=== PATIENT | male | born 1970 | race Caucasian/White ===

== ENCOUNTER 2019-06-12 22:50 | Emergency (ER) | payer OTHER, SELFPAY ==
--- NOTE | ~2019-06-12 | XR_ITS ---
XR tibia fibula LT 2V, XR foot LT min 3V 06/12/2019 23:44 (accession [id number]), 06/12/2019 23:43 (accession [id number]) Indication: Left leg and foot pain after fall Procedure: 2 views left tibia/fibula and 4 views left foot Comparison: No prior studies for comparison. Findings: No acute fracture, subluxation or dislocation. Lisfranc joint intact. No focal soft tissue abnormality. No radiopaque foreign bodies. Impression: 1: No acute fracture. Reviewed, dictated and finalized at location A. ETIC CHEMIST Impression: 1: No acute fracture. Impression: 1: No acute fracture.
[2019-06-12 22:52] VITALS: BP 146/87; PULSE 116; RESP 20; TEMP 37.1; O2SAT 98
[2019-06-12 23:27] VITALS: BP 140/100; PULSE 111; RESP 18; O2SAT 98
--- NOTE | 2019-06-12 23:30 | ED.EXTPRO ---
HPI - Extremity Problem General Chief complaint: Extremity Injury, Lower Stated complaint: L ankle pain Time Seen by Provider: 06/12/19 23:07 Source: patient Mode of arrival: ambulatory Limitations: no limitations History of Present Illness HPI Narrative: Patient is a 48-year-old male presents emergency department with complaints of left lower extremity pain to the foot and ankle. [facility] and thinks he twisted his left ankle. Patient has noticed pain to the ankle and foot. Patient has also noticed pale cool appearance to his foot. Patient reports onset of symptoms 5 days ago. Patient has been taking ibuprofen for pain. Patient also reports subjective fever, sore throat, and occasional nausea and vomiting. MD Complaint: extremity pain and cold extremity Onset (ago): day(s) (5) Pain Consistency: constant Location: left and lower extremity Quality: constant Relieving factors: nothing Exacerbating factors: palpation Associated symptoms: fever Related Data Allergies Allergy/AdvReac Type Severity Reaction Status Date / Time amoxicillin Allergy Unknown Unknown Verified 02/02/18 16:31 [facility] Past Medical History Medical History (Updated 06/13/19 @ 00:29 by Dipika Alejandra MD) Coronary artery disease Discitis of lumbar region Hepatitis C Hypertension Surgical History Surgical History (Updated 06/12/19 @ 23:34 by Dipika Alejandra MD) History of cardiac catheterization History of coronary artery stent placement Social History Social History (Updated 06/12/19 @ 23:44 by Dipika Alejandra MD) Smoking packs per day: 1 Smoking cigarettes per day: 20.0 Smoking status: Current every day smoker Substance use: former Substance use type: IV drugs Gender identity (if verbalized by the patient): Male Exam Const: General: cooperative, alert and uncomfortable Nutritional Appearance: well nourished Orientation/consciousness: patient oriented x3 Limitations: no limitations HENMT: Mouth: Yes lip normal and Yes moist mucous membranes Resp: Effort & Inspection: normal respiratory effort Auscultation: clear to auscultation bilaterally Cardio: Rate: tachycardic Rhythm: regular rhythm Peripheral pulses: popliteal pulses present bilateral dopplerable, posterior tibial pulses present on the right dopplerable; not on the left (absent, not dopplerable) and dorsalis pedis present on the right dopplerable; not on te left (absent, not dopplerable) GI: GI Palp: Yes Soft to palpation and No Tenderness to palpation present (GI) Auscultation: normal bowel sounds Skin: General skin exam: normal color, mottling (LLE from mid tib-fib down through foot) and pallor (LLE from mid tib-fib down through foot) Neuro: General: patient oriented x3 Cognition (Neuro): normal cognition Speech: normal speech Extrem: General: full ROM Right lower extremity: lower leg Details: tenderness (diffuse from mid tib-fib down through foot) Psych: Mental Status: mental status grossly normal Affect: normal affect Attitude: cooperative Course Course Emergency Course: Patient with complaints of pain to his left lower extremity for the past 5 days. Patient thought this was secondary to a traumatic injury. Patient however has lower leg ischemia on examination. Uncertain if his lower leg has been ischemic for the full 5 days. Patient does have limited movement and sensation compared to the right side. Patient has no dopplerable pulses distal to the popliteal which is easily dopplerable. Patient has approximate line of demarcation of ischemic findings in the mid tib-fib region on the left lower leg. Patient given IV pain medications, heparin bolus, and started on heparin drip. Arrangements made to transfer patient [facility] for vascular surgery evaluation. Consultations Consultation #1: Case discussed with Dr. Bruno, vascular surgery at [facility] who accepted patient
[2019-06-12] MEDS: SODIUM CHLORIDE 0.9% IV 1,000 ML 999 ML IV CONT (23:42)
[2019-06-12 23:56] LABS: Basophils Percent Auto 0.3 % (0.2-1.2); Eosinophils Percent Auto 0.3 % (0-4.4); Hematocrit 42.9 % (42.0-52.0); Hemoglobin 14.6 g/dL (14.0-18.0); Immature Granulocyte Absolute 0.07 K/mm3 (0.00-0.031); Immature Granulocyte Percent A 0.5 % (0-0.5); Lymphocytes Absolute Auto 1.87 K/mm3 (0.9-3.2); Lymphocytes Percent Auto 13.9 % (18.3-44.2); Mean Corpuscular Hemoglobin 29.7 pg (26-34); Mean Corpuscular Volume 87.4 fl (80-100); Mean Platelet Volume 9.4 fl (7.4-10.4); Monocytes Absolute Auto 0.7 K/mm3 (0.1-0.6); Monocytes Percent Auto 5.1 % (2.6-8.5); Neutrophils Absolute Auto 10.7 K/mm3 (1.3-6.7); Neutrophils Percent Auto 79.9 % (45.5-73.1); Platelet Count Result 345 k/mm3 (150-375); Red Blood Count 4.91 M/mm3 (4.6-6.20); Red Cell Distribution Width 13.1 % (11.5-14.5); White Blood Count 13.5 K/mm3 (4.5-10.0)
[2019-06-13] MEDS: HEPARIN SODIUM 5,000 UNITS/ML VIAL 4500 UNITS IV PUSH
[2019-06-13 00:07] LABS: INR 0.9; Partial Thromboplastin Time 22.6 SECONDS (22.3-36.8); Prothrombin Time 12.2 Seconds (11.1-14.7)
[2019-06-13 00:08] LABS: Lactic Acid Reflex 1.4 mmol/L (0.7-2.1)
[2019-06-13 00:14] LABS: Alanine Aminotransferase 45 U/L (4-50); Albumin Level 3.8 g/dL (3.5-5.1); Alkaline Phosphatase 224 U/L (38-126); Aspartate Amino Transferase 59 U/L (17-59); Bilirubin,Total 0.6 mg/dL (0.2-1.3); Blood Urea Nitrogen 12 mg/dL (9-20); Calcium 9.1 mg/dL (8.4-10.2); Carbon Dioxide 33 mmol/L (22-30); Chloride 85 mmol/L (98-107); Creatine Kinase 1047 U/L (55-170); Estimated CRCL calculation 80 ml/min; Estimated Glomerular Filt Rate > 60; Glucose 587 mg/dL (75-110); Potassium 4.3 mmol/L (3.4-5.0); Sodium 130 mmol/L (137-145)
[2019-06-13] MEDS: HEPARIN SOD/D5W 100 UNITS/ML 25,000 UNITS/250 ML BAG 11 UNITS IV CONT (00:34)
[2019-06-13 00:47] VITALS: BP 142/96; PULSE 90; RESP 18; O2SAT 98
--- NOTE | 2019-06-18 20:29 | PC.NURSE ---
LATE ENTRY This note is being entered to document information to the patient's record. The following information was omitted on [06/12/19], by [Christal Austin]. Heparin drip continued infusing while pt was transferred to another facility.
== END 2019-06-13 00:48 | disposition short-term general hospital (02) ==
PROVIDERS: Emergency Provider Emergency Medicine
DX: I70.202 Unspecified atherosclerosis of native arteries of extremities, left leg (principal); R73.9 Hyperglycemia, unspecified; I25.10 Atherosclerotic heart disease of native coronary artery without angina pectoris; I10 Essential (primary) hypertension; Z95.5 Presence of coronary angioplasty implant and graft; F17.210 Nicotine dependence, cigarettes, uncomplicated; Z86.19 Personal history of other infectious and parasitic diseases
CPT/HCPCS: 36415; 73590; 73630; 80053; 82550; 83605; 85025; 85610; 85730; 87081; 87804; 87880; 96361; 96374; 96375; 99285; J0131; J1644; J3010; J7030

== ENCOUNTER 2021-03-13 20:39 | Inpatient (IN) | payer OTHER, SELFPAY ==
--- NOTE | ~2021-03-13 | XR_ITS ---
XR chest 1V portable 03/13/2021 21:17 Indication: STEMI Procedure: AP portable chest Comparison: No prior studies for comparison. Findings: Heart size normal. There are diffuse bilateral interstitial infiltrates with peribronchial thickening. No pleural effusion or pneumothorax. Impression: 1: Diffuse bilateral interstitial infiltrates, suspicious for interstitial edema versus pneumonia. Reviewed, dictated and finalized at location A. STANT PROFESSOR OF ENGLISH Impression: 1: Diffuse bilateral interstitial infiltrates, suspicious for interstitial bee a versus pneumonia.
[2021-03-13 20:40] VITALS: BP 137/103; PULSE 60; RESP 14; O2SAT 100
--- NOTE | 2021-03-13 20:52 | ECG_ITS ---
Measurements Intervals [place] Rate: 65 P: 78 NC: 178 QRS: 53 QRSD: 98 T: 1 QT: 405 QTc: 421 Interpretive Statements SINUS RHYTHM POSSIBLE LEFT ATRIAL ENLARGEMENT BORDERLINE T WAVE ABNORMALITY- INFERIOR LEADS BASELINE ARTIFACT- I, III, AVR, AVL, AVF, V1-V2, V5 BORDERLINE ECG Electronically Signed On 03-14-2021 6:42:03 [employer] INSERTION LOOM FIXER by Ras Spear D.O.
[2021-03-13] MEDS: NITROGLYCERIN SL 0.4 MG TABLET SUBLINGUAL (21:08)
[2021-03-13] MEDS: MORPHINE SULFATE (*CRX) 4 MG/ML INJ IV PUSH (21:13)
--- NOTE | 2021-03-13 21:15 | ED.CHESTPAIN ---
HPI - Chest Pain General Chief Complaint: Chest Pain Stated Complaint: STEMI Time Seen by Provider: 03/13/21 20:48 Source: patient and EMS Mode of arrival: EMS Limitations: clinical condition History of Present Illness HPI narrative: 50-year-old male Brought in by EMS for chest pain Patient reports 2 prior MIs roughly 3 years ago and 7 years ago both taking care of of at [place] [facility] [place] He still smokes a pack a day, does not drink no other drug use He does say that he is taking his blood pressure medicine and his statin and his aspirin He also is an insulin-dependent diabetic and reports that he took his morning insulin today He summoned EMS because of onset of severe chest pain about 2 hours prior to arrival Initial EMS EKG was benign but his pain increased and a second EKG demonstrated inferior ST segment elevations consistent with STEMI and a STEMI was called They also noted high on Accu-Chek He received aspirin, he also received nitroglycerin with little benefit He is not vomiting, he is not lightheaded he is not diaphoretic Related Data Allergies Allergy/AdvReac Type Severity Reaction Status Date / Time amoxicillin Allergy Unknown Unknown Verified 02/02/18 16:31 Review of Systems Review of Systems: ROS unobtainable: Yes unobtainable due to medical condition Cardiovascular: Cardiovascular: Reports chest pain Respiratory: Respiratory: Denies dyspnea Gastrointestinal: Gastrointestinal: Denies vomiting PMFSH Past Medical History Medical History Coronary artery disease Discitis of lumbar region Hepatitis C Hypertension Surgical History Surgical History History of cardiac catheterization History of coronary artery stent placement Social History Social History Smoking packs per day: 1 Smoking cigarettes per day: 20.0 Smoking status: Current every day smoker Substance use: former Substance use type: IV drugs Gender identity (if verbalized by the patient): Male Exam Const: General: cooperative, alert and in distress severe Orientation/consciousness: patient oriented x3 (alert) HENMT: Head: normal to inspection, normocephalic and atraumatic Ears: external ears normal General nose exam: no epistaxis Eyes: Conjunctivae: conjunctivae normal EOM: EOMs intact bilaterally Neck: Neck: normal visual inspection, supple and no JVD Resp: Effort & Inspection: normal respiratory effort and not labored Auscultation: clear to auscultation bilaterally, no rales, no rhonchi, no wheezes and other (BS =) Cardio: Rate: regular rate Rhythm: regular rhythm Heart sounds: no murmurs GI: GI Palp: Yes Soft to palpation, No Tenderness to palpation present (GI) and No Guarding due to palpation present (GI) Skin: General skin exam: normal color and no rashes or lesions noted Neuro: General: patient oriented x3 (alert) and moves all extremities Speech: normal speech Extrem: General: normal to inspection and no pedal edema Psych: Affect: Anxious affect present Course Course Emergency Course: Spoke directly to cardiology with regard to the STEMI page Interestingly his first EKG here showed significant inferior ST elevations and bradycardia but on a subsequent tracing a few minutes later both of those things had resolved all of his chest pain continued Vital stable when he was transferred to the [facility] We did not receive any of his labs back before he left the department Vital Signs Vital signs: Vital Signs Pulse Rate 60 03/13/21 20:40 Respiratory Rate 14 03/13/21 20:40 Blood Pressure 137/103 H 03/13/21 20:40 Pulse Oximetry 100 03/13/21 20:40 Pulse Rate 60 03/13/21 20:40 Respiratory Rate 14 03/13/21 20:40 Blood Pressure 137/103 H 03/13/21 20:40 Pulse Oximetry 100 03/13/21 20:40 MDM - Chest P
[2021-03-13 21:59] LABS: Fractional Inspired Oxygen 21 %; HCO3 VBG 29.4 mEq/l (24.0-30.0); pH VBG 7.276 (7.300-7.400)
[2021-03-13 22:01] LABS: Glucose Point of Care 421 mg/dl (65-105)
[2021-03-13 22:01] LABS: Basophils Absolute Auto 0.1 K/mm3 (0.0-0.1); Basophils Percent Auto 0.4 % (0.2-1.2); Eosinophils Absolute Auto 0.1 K/mm3 (0-0.3); Eosinophils Percent Auto 0.8 % (0-4.4); Hematocrit 42.7 % (42.0-52.0); Hemoglobin 15.2 g/dL (14.0-18.0); Immature Granulocyte Absolute 0.04 K/mm3 (0.00-0.031); Immature Granulocyte Percent A 0.3 % (0-0.5); Lymphocytes Absolute Auto 3.18 K/mm3 (0.9-3.2); Lymphocytes Percent Auto 26.5 % (18.3-44.2); Mean Corpuscular HGB Conc 35.6 g/dl (32-36); Mean Platelet Volume 8.8 fl (7.4-10.4); Monocytes Absolute Auto 0.7 K/mm3 (0.1-0.6); Monocytes Percent Auto 6.1 % (2.6-8.5); Neutrophils Absolute Auto 7.9 K/mm3 (1.3-6.7); Neutrophils Percent Auto 65.9 % (45.5-73.1); PCO2 VBG 64.7 mmHg (42.0-48.0); PO2 VBG 24.2 mmHg (35.0-45.0); Platelet Count Result 255 k/mm3 (150-375); Red Blood Count 4.91 M/mm3 (4.6-6.20); Red Cell Distribution Width 12.1 % (11.5-14.5)
[2021-03-13 22:11] LABS: Anion Gap 8 mmol/L (8-16); Blood Urea Nitrogen 15 mg/dL (9-20); Calcium 9.4 mg/dL (8.4-10.2); Carbon Dioxide 29 mmol/L (22-30); Chloride 94 mmol/L (98-107); Estimated CRCL calculation 78 ml/min; Estimated Glomerular Filt Rate > 60; Glucose 435 mg/dL (65-110); Potassium 4.7 mmol/L (3.4-5.0); Sodium 131 mmol/L (137-145)
--- NOTE | 2021-03-13 22:11 | PM.IMHP ---
H&P: HPI History of Present Illness Date/Time: 03/13/21 22:11 Chief Complaint: chest pain Narrative: this is a 50-year-old patient who is known to have coronary artery disease with previous percutaneous revascularization by another sr. manager to does not practice at this hospital. He was brought to this hospital this evening with chest pain and ECG on route in the field demonstrates obvious acute inferior current of injury. In this setting STEMI was activated. Patient is being seen in the cardiac catheterization lab by his being prepared for emergency angiography. He is in significant distress because of chest pain. No other history is obtained at the time of this emergency Review of Systems Review of Systems: ROS unobtainable: Yes unobtainable due to medical condition PMFSH Past Medical History Medical History Coronary artery disease Discitis of lumbar region Hepatitis C Hypertension Surgical History Surgical History History of cardiac catheterization History of coronary artery stent placement Social History Social History Smoking packs per day: 1 Smoking cigarettes per day: 20.0 Smoking status: Current every day smoker Substance use: former Substance use type: IV drugs Gender identity (if verbalized by the patient): Male Meds Home Medications and Allergies Allergies Allergy/AdvReac Type Severity Reaction Status Date / Time amoxicillin Allergy Unknown Unknown Verified 02/02/18 16:31 Vital Signs Vital Signs - 24 hr 03/13/21 20:40 Pulse Rate 60 Respiratory Rate 14 Blood Pressure 137/103 H Pulse Oximetry 100 Exam Const: General: in distress and uncomfortable Other: white male appearing older than his stated age screaming because of chest pain HENMT: Mouth: Yes moist mucous membranes Eyes: Sclera: sclerae normal Pupils: Equal, round and reactive pupils present Neck: Neck: supple and no JVD Other: carotid pulses are intact bilaterally Resp: Auscultation: diminished lung sounds Other: breath sounds are diminished bilaterally no rales or wheezing Cardio: Rate: regular rate Rhythm: regular rhythm Other: PMI nondisplaced, S4 is evident no murmur GI: GI Palp: Yes Soft to palpation Auscultation: normal bowel sounds Skin: General skin exam: normal color Neuro: Cognition (Neuro): normal cognition Extrem: Other: pulses below the femoral triangle was are diminished previous vascular surgery scars are noted H&P: Results Labs Labs: Short CBC 03/13/21 Range/Units 21:50 WBC 12.0 H (4.5-10.0) K/mm3 Hgb 15.2 (14.0-18.0) g/dL Hct 42.7 (42.0-52.0) % Plt Count 255 (150-375) k/mm3 Assessment and Plan Additional Plan 50-year-old man with coronary artery disease previous percutaneous revascularization no records of this her details are available to us at this hospital. He presents with chest pain and acute inferior wall ST-elevation MS. Preparations are now being made for emergency angiography and revascularization. Patient states he has hypertension diabetes dyslipidemia and ongoing cigarette smoking Jeffy Oneill MD [facility]
[2021-03-13 22:12] LABS: Alanine Aminotransferase 23 U/L (4-50); Albumin Level 4.5 g/dL (3.5-5.1); Alkaline Phosphatase 156 U/L (38-126); Anion Gap 10 mmol/L (8-16); Aspartate Amino Transferase 22 U/L (17-59); Bilirubin,Total 0.5 mg/dL (0.2-1.3); Blood Urea Nitrogen 14 mg/dL (9-20); Calcium 9.7 mg/dL (8.4-10.2); Carbon Dioxide 28 mmol/L (22-30); Chloride 94 mmol/L (98-107); Estimated CRCL calculation 70 ml/min; Estimated Glomerular Filt Rate > 60; Glucose 436 mg/dL (65-110); Potassium 4.6 mmol/L (3.4-5.0); Sodium 132 mmol/L (137-145)
[2021-03-13 22:14] LABS: INR 0.9; Prothrombin Time 12.1 Seconds (11.1-14.7)
--- NOTE | 2021-03-13 22:14 | WPDCARDPROC ---
Cardiac Cath Procedure Note Date of procedure:: 03/13/21 Performing physician:: Jeffy Oneill MD Indication:: acute ST-elevation inferior wall MD Brief clinical history:: this is a 50-year-old patient brought into the emergency room by ambulance with chest pain ECG in the field demonstrates acute ST segment elevation MD of the inferior wall. He has a history of previous PCI no records of this are available here at [facility]. Patient reports a history of hypertension dyslipidemia diabetes and he has chosen to continue to smoke cigarettes. Procedure Procedure performed:: Emergency coronary angiography emergency PCI(JEROME) to the right coronary artery left ventriculography Sedation/Medication given:: no sedation Access site:: right femoral artery Estimated blood loss:: 30 cc Procedure note:: patient was brought to the cardiac catheterization lab in the emergency setting described above. The right femoral triangle was prepared and draped in the usual fashion. Anesthesia was given with 1% lidocaine infiltrated locally. Using the modified Seldinger technique the femoral artery was punctured and a 6 [place] Zealander vascular sheath was placed. I used a 5 [place] FL4 catheter to engage inject the left coronary artery in multiple projections I then used a 6 [place] JR4 guiding catheter to engage inject the right coronary artery. The cineangiograms were then reviewed and PCI of the right coronary artery was recommended and carried out as detailed below. prior to RCA PCI the patient received 180 mg of Brilinta orally in the supervisor labor gang and he was anticoagulated with bolus and infusion of Angiomax. He had received aspirin loading dose in the emergency department. Following PCI the sheath was sutured into position I used a 5 [place] Zealander angled pigtail catheter to measure left-sided hemodynamics and to inject LV g in the PUENTE projection. After this case was terminated. Patient was taken to the ICU for post MD PCI recovery. There were no procedural complications and he left the supervisor labor gang with no evidence of a groin hematoma. Findings:: Hemodynamics: Central aortic pressure is 1 95 over 104 left ventricle 195/0 end-diastolic pressure 26. No gradient on pullback across the aortic valve. Left ventricle: The mid to basal segments of the inferior wall are akinetic the remainder of the LV contracts well the global ejection fraction is 50-55% by visual estimation the left main coronary artery is nicely patent left anterior descending is a moderate caliber artery extending down to the apex the LAD has visible stent material in the proximal 3rd which remains nicely patent with no significant loss of lumen. There was MARIBEL 3 flow in the LAD. The circumflex gives rise to 1 significant marginal branch and another smaller marginal branch the proximal segment of the circumflex also has previously visible stent material which also remains nicely patent with no loss of lumen and MARIBEL 3 flow in the circumflex the right coronary artery is moderate to large in caliber and dominant to the posterior circulation the right coronary artery has visible stent material in the 2nd portion. Just proximal to that the vessel is 100% occluded in the 1st portion. Intervention: The right coronary artery was traversed using a 0.014 BMW coronary guidewire. The target lesion where the at the site of the original occlusion was then pre-dilated using 3 x 20 mm emerge PTCA balloon. There was then MARIBEL 3 flow restored very quickly into the RCA. The target lesion was then stented using a 3.5 x 22 mm Orsiro drug-eluting stent deployed at 8 atmospheres with the excellent anatomical result no residual stenosis disruption or embolization. Angiographically there is 70-80% stenosis in the 3rd portion of the RCA. I elected to treat this segment as well using the same 3.5 x 22 mm Orsiro drug-eluting stent also with an excellent anatomical result. At the end of the intervention the right
[2021-03-13 22:16] LABS: Beta-Hydroxybutyrate/Acetoacetate 0.09 mmol/L (0.02-0.27)
[2021-03-13 22:23] LABS: INR 0.9; Partial Thromboplastin Time 23.9 SECONDS (22.3-36.8); Prothrombin Time 12.2 Seconds (11.1-14.7)
[2021-03-13 22:24] LABS: Troponin I < 0.012 ng/mL (0.000-0.034)
[2021-03-13 22:26] LABS: Troponin I < 0.012 ng/mL (0.000-0.034)
[2021-03-13 22:30] VITALS: BP 170/120; PULSE 83; RESP 20; TEMP 36.9; O2SAT 100
[2021-03-13 22:32] LABS: D Dimer 0.38 ug/mL (<0.48)
[2021-03-13 22:44] LABS: Cholesterol 198 mg/dL (0-200); HDL Direct 39 mg/dL; Triglycerides 151 mg/dL (<150)
[2021-03-13 22:55] LABS: LDL Cholesterol Direct 134 mg/dL
--- NOTE | 2021-03-13 22:55 | PC.NURSE ---
Addendum entered by Eva Zimmerman RN 03/13/21 22:57: Admitted at 2227 Original Note: This patient, Cliff Peralta, was admitted to Intensive Care Unit-7 at 1027. Patient/family oriented to hospital policies and general routines including ID bracelet, bed and alarms, visiting hours, pain management, procedures, bathroom and other care routines, personal items, smoking policy, room service/diet, and visiting hours. Information on how to activate the Rapid Response Team has been discussed. Patient/Family are encouraged to report perceived risks to care and to ask questions if they do not understand what they are told or what they should do.
[2021-03-13 23:00] VITALS: BP 179/114; PULSE 87; RESP 16; O2SAT 98
[2021-03-13 23:06] VITALS: BMI 26.4
--- NOTE | 2021-03-13 23:19 | PC.NURSE ---
Cardiopulmonary Rehab Services flyer was given to patient.
--- NOTE | 2021-03-13 23:26 | PC.NURSE ---
Levemir is patient's home insulin our pharmacy autosubs to Lantus.
[2021-03-13] MEDS: hydrALAZINE HCL 20 MG/ML VIAL 10 MG IV PUSH (23:33)
[2021-03-13] MEDS: INSULIN GLARGINE (*BKC) 100 UNITS/ML 10 UNITS SUB-Q (23:34)
[2021-03-13] MEDS: INSULIN HUMAN REGULAR (*BKC) 100 UNITS/ML IV PUSH (23:34)
[2021-03-13] MEDS: SODIUM CHLORIDE 0.9% IV 1,000 ML 999 ML IV CONT (23:36)
[2021-03-13 23:43] LABS: Glucose Point of Care 266 mg/dl (65-105)
[2021-03-14] VITALS (19 sets, daily range): BP systolic 110–177; BP diastolic 70–103; PULSE 64–91; RESP 11–24; TEMP 36.4–36.8; O2SAT 96–100
[2021-03-14] MEDS: hydrALAZINE HCL 20 MG/ML VIAL 10 MG IV PUSH (03:43)
--- NOTE | 2021-03-14 05:11 | ECG_ITS ---
Measurements Intervals [place] Rate: 62 P: -3 DC: 127 QRS: 4 QRSD: 98 T: -32 QT: 446 QTc: 454 Interpretive Statements SINUS RHYTHM BORDERLINE T WAVE ABNORMALITY- INFERIOR LEADS BASELINE ARTIFACT- AVR, AVL, AVF BORDERLINE ECG Electronically Signed On 03-14-2021 12:06:53 [employer]OR [employer]FFECT[employer] by Ras Spear D.O.
[2021-03-14 06:43] LABS: Anion Gap 7 mmol/L (8-16); Blood Urea Nitrogen 13 mg/dL (9-20); Calcium 9.1 mg/dL (8.4-10.2); Carbon Dioxide 24 mmol/L (22-30); Chloride 103 mmol/L (98-107); Estimated CRCL calculation 107 ml/min; Estimated Glomerular Filt Rate > 60; Glucose 281 mg/dL (65-110); Magnesium 1.8 mg/dL (1.6-2.3); Potassium 3.7 mmol/L (3.4-5.0); Sodium 134 mmol/L (137-145)
[2021-03-14] MEDS: lisinopriL 10 MG TABLET PO (08:33)
[2021-03-14] MEDS: ASPIRIN 81 MG CHEWABLE TABLET PO (08:33)
[2021-03-14] MEDS: METOPROLOL TARTRATE 25 MG TABLET PO ×2 (08:34→20:34)
[2021-03-14] MEDS: TICAGRELOR 90 MG TABLET PO ×2 (08:34→20:34)
[2021-03-14] MEDS: ROSUVASTATIN 10 MG TABLET 20 MG PO (08:34)
--- NOTE | 2021-03-14 08:42 | PM.PNCARD ---
Progress Note: A&P Additional Plan 50-year-old man with: Chronic coronary artery disease with PCI of all of his coronary arteries in the past at another institution. He presented here last night with acute inferior wall SC with proximal occlusion of the RCA. He received 2 additional drug-eluting stents at the site of the occlusion and another 1 in the 3rd portion of the vessel because of significant stenosis in that segment as well. Angiographic results were good. He is clinically stable today. So far no complications of this event. Since his troponin level was not very impressive I would consider the option of discharging him tomorrow if all is stable. He anticipates following up with his established supervisor print line in [place], Dr. [place]. Jeffy Oneill MD [facility] Subjective Date/time seen: Date of service: 03/14/21 08:42 Interval history: Follow-up visit in this 50-year-old man with: Coronary artery disease presenting with acute inferior wall myocardial infarction after which he was brought emergently to the cardiac director of cardiac cath lab for revascularization. All of his coronary arteries had been previously stented. There was no significant left coronary artery lesion. The right coronary artery was proximally occluded prior to the stent in the midportion of that vessel. Revascularization involved stenting of this segment and stenting of a more distal lesion as well. Angiographic results were very good. Troponin rise was relatively small considering this and he is asymptomatic this morning feeling well and offers no complaints. Comorbidities include hypertension and diabetes as well as ongoing cigarette smoking Exam Const: General: comfortable and no acute distress Other: Short statured man appearing a bit older than his stated age comfortable in no distress this morning HENMT: Mouth: Yes moist mucous membranes Eyes: Sclera: sclerae normal Pupils: Equal, round and reactive pupils present Neck: Neck: supple and no JVD Other: Carotid pulses are intact bilaterally no audible bruits Resp: Auscultation: clear to auscultation bilaterally and diminished lung sounds Other: Breath sounds are clear but diminished in both lung [place] Cardio: Rate: regular rate Rhythm: regular rhythm Other: S4 gallop is evident there is no murmur GI: GI Palp: Yes Soft to palpation Auscultation: normal bowel sounds Skin: General skin exam: normal color Neuro: Cognition (Neuro): normal cognition Extrem: General: normal to inspection Other: Right groin puncture site looks fine no hematoma no bruit normal pulse in the foot Objective Data Vital Signs Vital Signs: Vital Signs - 24 hr 03/13/21 20:40 03/13/21 22:30 03/13/21 23:00 Temperature 36.9 C Pulse Rate 60 83 87 Pulse Rate [Bilateral Pedal (Dorsalis Pedis) Palpation] Respiratory Rate 14 20 16 Blood Pressure 137/103 H 170/120 H 179/114 H Pulse Oximetry 100 100 98 03/14/21 00:24 03/14/21 01:43 03/14/21 02:00 Temperature 36.8 C Pulse Rate 86 78 77 Pulse Rate [Bilateral Pedal (Dorsalis Pedis) Palpation] 86 Respiratory Rate 16 14 12 Blood Pressure 154/96 H 149/103 H 169/101 H Pulse Oximetry 100 100 100 03/14/21 02:01 03/14/21 03:00 03/14/21 04:00 Temperature 36.4 C L Pulse Rate 78 68 81 Pulse Rate [Bilateral Pedal (Dorsalis Pedis) Palpation] 84 Respiratory Rate 12 14 16 Blood Pressure 168/101 H 177/98 H 161/101 H Pulse Oximetry 99 100 100 03/14/21 05:00 03/14/21 06:00 03/14/21 08:34 Temperature Pulse Rate 79 72 91 Pulse Rate [Bilateral Pedal (Dorsalis Pedis) Palpation] 84 84 Respiratory Rate 18 16 Blood Pressure 156/82 H 152/97 H Pulse Oximetry 100 97 Intake/Output Intake/Output: Intake & Output 03/11/21 03/12/21 03/13/21 03/14/21 23:59 23:59 23:59 23:59 Intake Total 240 Output Total 1100 Balance -860 Meds/Results Medications: Active Medications Generic Name Dose Route Start Last Admin Trade Name Freq PRN Reason Stop D
[2021-03-14 09:07] LABS: Glucose Point of Care 267 mg/dl (65-105)
[2021-03-14] MEDS: INSULIN ASPART (*BKC) 100 UNITS/ML SUB-Q ×3 (09:10→18:16)
[2021-03-14] MEDS: INSULIN GLARGINE (*BKC) 100 UNITS/ML 10 UNITS SUB-Q ×2 (09:11→20:35)
--- NOTE | 2021-03-14 12:03 | WPDCNINT ---
Assessment and Plan Assessment and plan (1) ST elevation (STEMI) myocardial infarction: Code(s): I21.3 - ST elevation (STEMI) myocardial infarction of unspecified site Status: Acute Assessment and Plan: Patient presented to the ED on 03/13/2021 via EMS for chest pain and EKG in the field demonstrated acute inferior AR, Patient was taken to the cardiac technical laboratory asst where he underwent a PTCA/PCI with stent x2 to proximal and distal RCA. EF 50-55%.. Patient was started on Brilinta, beta-erasmo, lisinopril, rosuvastatin -cardiology following the patient (2) Hyperglycemia: Code(s): R73.9 - Hyperglycemia, unspecified Status: Acute Assessment and Plan: Patient has been started on Lantus and high-dose sliding scale with Accu-Cheks (3) Essential hypertension: Code(s): I10 - Essential (primary) hypertension Status: Acute Assessment and Plan: Continue lisinopril and beta-erasmo Additional Plan Discussed with patient updated with his condition and plan of care. Code status: Full code Critical care time spent: 37 minute This dictation may have been done utilizing a voice recognition system. Attempts have been made to correct errors. However, there may be uncorrected grammatical, spelling, and recognition errors present. Due to a high probability of clinically significant, life threatening deterioration, the patient required my highest level of preparedness to intervene emergently and I personally spent this critical care time directly and personally managing the patient. This critical care time included obtaining a history; examining the patient; pulse oximetry; ordering and review of studies; arranging urgent treatment with development of a management plan; evaluation of patient's response to treatment; frequent reassessment; and discussions with other providers. It was exclusive of separately billable procedures and treating other patients and teaching time. Please see Assessment and Plan section and the rest of the note for further information on patient assessment and treatment Sheet Taker Consult Note Consult date: 03/14/21 Reason for consult: STEMI HPI: Cliff Peralta is a 50 year old male with past medical history of coronary artery disease with multiple stents, diskitis of lumbar region, hepatitis-C, hypertension presented the ED on 03/13/2021 with complains of chest pain and EKG in the field demonstrating acute inferior AR, STEMI was activated. Patient was taken to the cardiac technical laboratory asst where he underwent a PTCA/PCI with stent x2 to proximal and distal RCA. EF 50-55%.. Patient was started on Brilinta, beta-erasmo, lisinopril, rosuvastatin, transferred to the ICU for further management Patient seen and examined this morning in the ICU, remains asymptomatic with no chest pain, shortness of breath, nausea, vomiting abdominal pain. Hemodynamically stable, blood sugars were elevated overnight, started him on Lantus and sliding scale insulin. Patient is afebrile, urine output has been adequate. Review of Systems Review of Systems: All systems reviewed & are unremarkable except as noted in HPI and below PMFSH Past Medical History Medical History Coronary artery disease Discitis of lumbar region Hepatitis C Hypertension Surgical History Surgical History History of cardiac catheterization History of coronary artery stent placement Family History Family History (Updated 03/14/21 @ 00:02 by Eva Zimmerman RN) Father Myocardial infarction Social History Social History Smoking packs per day: 1 Smoking cigarettes per day: 20.0 Smoking status: Current every day smoker Tobacco type: cigarettes Alcohol intake: never Substance use: never Substance use type: does not use Gender identity (if verbali
[2021-03-14 13:19] LABS: Glucose Point of Care 227 mg/dl (65-105)
[2021-03-14 17:54] LABS: Glucose Point of Care 215 mg/dl (65-105)
[2021-03-14 20:32] LABS: Glucose Point of Care 304 mg/dl (65-105)
[2021-03-15] VITALS (8 sets, daily range): BP systolic 122–143; BP diastolic 82–98; PULSE 58–74; RESP 13–18; TEMP 36.7–36.8; O2SAT 96–97
[2021-03-15] MEDS: ROSUVASTATIN 10 MG TABLET 20 MG PO (09:07)
[2021-03-15] MEDS: ASPIRIN 81 MG CHEWABLE TABLET PO (09:07)
[2021-03-15] MEDS: METOPROLOL TARTRATE 25 MG TABLET PO (09:07)
[2021-03-15] MEDS: TICAGRELOR 90 MG TABLET PO (09:07)
[2021-03-15] MEDS: lisinopriL 10 MG TABLET PO (09:07)
[2021-03-15] MEDS: INSULIN GLARGINE (*BKC) 100 UNITS/ML 10 UNITS SUB-Q (09:09)
[2021-03-15] MEDS: INSULIN ASPART (*BKC) 100 UNITS/ML SUB-Q (09:09)
[2021-03-15 09:17] LABS: Glucose Point of Care 239 mg/dl (65-105)
[2021-03-15 12:53] LABS: Glucose Point of Care 137 mg/dl (65-105)
--- NOTE | 2021-03-15 13:21 | PM.DS ---
DS: Admitting Diagnosis Discharge Date 03/15/2021 Admitting Diagnosis STEMI (inf wall) DM (uncontrolled) HTN CAD and Hx of prior PCI DS: Discharge Diagnosis Discharge Diagnosis (1) ST elevation (STEMI) myocardial infarction: Code(s): I21.3 - ST elevation (STEMI) myocardial infarction of unspecified site Status: Acute (2) Essential hypertension: Code(s): I10 - Essential (primary) hypertension Status: Acute (3) Hyperglycemia: Code(s): R73.9 - Hyperglycemia, unspecified Status: Acute DS: Summary Hospital Course Reason for hospitalization: STEMI inf wall Hospital Course: Patient presented with acute chest pain and found to have acute inf wall DE. Emergency LHC was done and revascularization was done successfully with 2 JEROME to RCA. Following procedure patient was chest pain free, ambulant with no problems. Access site with no complication. His Blood sugars was poorly controlled on admission which could be related to STEMI that improved afterwards. Couseled patient to stop smoking, take medication and educated about symptoms of heart attack and importance of follow up. We had concern he couldn't afford Ticagrelor, and after discussion with patient decision made to change to plavix. Will need to be loaded with 600 mg daily tomorrow then 75 mg daily starting on Friday. Time spent discussing smoking cessation with patient: 3 to 10 minutes Status at Discharge Cognitive/behavioral status at discharge: Patient is fully aware and understand instructions Functional status at discharge: independent ambulation Overall status at discharge: patient is back to baseline Time Spent with Patient Time attestation: Total time spent providing and/or coordinating discharge services: 20 minutes Exam Const: General: comfortable and no acute distress Other: Able to lie flat HENMT: General nose exam: Normal nares present and no epistaxis Mouth: Yes moist mucous membranes Eyes: Sclera: sclerae normal Pupils: Equal, round and reactive pupils present Neck: Neck: supple and no JVD Carotids: no bruits Resp: Auscultation: clear to auscultation bilaterally and lung sounds not diminished Other: No chest wall tenderness Cardio: Rate: regular rate Rhythm: regular rhythm Heart sounds: no gallops, no murmurs and no rubs GI: GI Palp: Yes Soft to palpation and No Tenderness to palpation present (GI) Auscultation: normal bowel sounds Skin: General skin exam: normal color, rashes and/or lesions noted and no erythema Other: Warm Neuro: Cranial nerves: Yes Equal, round and reactive pupils present Speech: normal speech Other: No obvious focal deficit or facial asymmetry Extrem: General: no edema Other: Normal capillary refills Intact distal pulses. DS: Data Data Completed and Pending Labs on day of discharge: Labs from last 24 hours 03/15/21 03/15/21 03/14/21 12:51 09:02 20:30 POC Capillary Glucose 137 H 239 H 304 H 03/14/21 17:52 POC Capillary Glucose 215 H Discharge Plan Discharge Attending physician on discharge: Tuan Lemus Consulting providers: Jassi Woodall Discharging Clinician: Tuan Lemus Anticipated Discharge Date/Time: 03/15/21 13:11 Patient Disposition: Home, Self-Care Activity: other - see discharge instructions Diet: heart healthy Discharge Instructions: Take medicine daily as prescribed; tomorrow (Friday03/16/2021) take 600 mg of plavix in AM then starting friday (03/17/21) start plavix 75 mg daily Don't interrupt medication without consultation with physician Don't carry or push objects > 10 lbs for one week If you have chest pain, SOB or bleeding, visit ER F/U with clinic in 2 weeks before released back to work Call clinic in regular work hours to confirm appointment and get referral to rehab Patient Instructions: Antibiotic Form, How to Stop Smoking (DC) Stand Alone Forms: General Discharge Information Follow-
== END 2021-03-15 14:00 | disposition home or self-care (01) | DRG 174 ==
LOC: ANHED 21:13 → ANHICU 21:20
PROVIDERS: Internal Medicine; Admitting Provider Specialist; Emergency Provider Emergency Medicine; Visit Provider Internal Medicine Interventional Cardiology
PROC: 4A023N7 Measurement of Cardiac Sampling and Pressure, Left Heart, Percutaneous Approach (ICD-10-PCS; CPT 93452; principal; 2021-03-13 21:00)
PROC: 027035Z Dilation of Coronary Artery, One Artery with Two Drug-eluting Intraluminal Devices, Percutaneous Approach (ICD-10-PCS; 2021-03-13 21:00)
DX: I21.11 ST elevation (STEMI) myocardial infarction involving right coronary artery (principal); I25.10 Atherosclerotic heart disease of native coronary artery without angina pectoris; I10 Essential (primary) hypertension; R73.9 Hyperglycemia, unspecified; F17.210 Nicotine dependence, cigarettes, uncomplicated; Z95.5 Presence of coronary angioplasty implant and graft; Z86.19 Personal history of other infectious and parasitic diseases
CPT/HCPCS: 36415; 71045; 80048; 80053; 80061; 82010; 82803; 82948; 83735; 84484; 85025; 85380; 85610; 85730; 86850; 86900; 86901; 93005; 93458; 99291; A9270; C1725; C1769; C1874; C1887; C1894; C9606; J0360; J0461; J0583; J1644; J1815; J2270; J7030; J7040

== ENCOUNTER 2022-07-22 18:33 | Emergency (ER) | payer OTHER, SELFPAY ==
[2022-07-22 18:31] VITALS: BP 165/114; PULSE 94; RESP 13; TEMP 36.2; O2SAT 97
[2022-07-22 18:46] VITALS: PULSE 95; RESP 16
--- NOTE | 2022-07-22 18:52 | PC.NURSE ---
Pt seen walking out of dept at this time.
== END 2022-07-22 18:50 | disposition left against medical advice (07) ==
DX: R41.82 Altered mental status, unspecified (principal)
CPT/HCPCS: 99199

== ENCOUNTER 2022-11-05 22:25 | Emergency (ER) | payer OTHER, SELFPAY ==
[2022-11-05 22:44] VITALS: BP 118/67; PULSE 78; RESP 14; TEMP 36.4; O2SAT 99
[2022-11-05 22:45] LABS: Glucose Point of Care 377 mg/dl (65-105)
[2022-11-05 23:02] VITALS: BP 128/69; PULSE 70; RESP 25
--- NOTE | 2022-11-05 23:15 | PC.NURSE ---
This RN assumed care of patient.
[2022-11-05 23:25] LABS: Basophils Percent Auto 0.2 % (0.2-1.2); Eosinophils Percent Auto 0.3 % (0-4.4); Hematocrit 46.5 % (42.0-52.0); Hemoglobin 16.5 g/dL (14.0-18.0); Immature Granulocyte Absolute 0.02 K/mm3 (0.00-0.031); Immature Granulocyte Percent A 0.2 % (0-0.5); Lymphocytes Percent Auto 23.3 % (18.3-44.2); Mean Corpuscular HGB Conc 35.5 g/dl (32-36); Mean Corpuscular Hemoglobin 30.8 pg (26-34); Mean Corpuscular Volume 86.8 fl (80-100); Mean Platelet Volume 9.1 fl (7.4-10.4); Monocytes Absolute Auto 0.6 K/mm3 (0.1-0.6); Monocytes Percent Auto 6.8 % (2.6-8.5); Neutrophils Absolute Auto 6.5 K/mm3 (1.3-6.7); Neutrophils Percent Auto 69.2 % (45.5-73.1); Platelet Count Result 210 k/mm3 (150-375); Red Blood Count 5.36 M/mm3 (4.6-6.20); White Blood Count 9.5 K/mm3 (4.5-10.0)
[2022-11-05 23:34] LABS: Alanine Aminotransferase 23 U/L (6-50); Albumin Level 4.3 g/dL (3.5-5.1); Alkaline Phosphatase 108 U/L (38-126); Anion Gap 8 mmol/L (8-16); Aspartate Amino Transferase 22 U/L (17-59); Bilirubin,Total 0.9 mg/dL (0.2-1.3); Blood Urea Nitrogen 18 mg/dL (9-20); Calcium 9.3 mg/dL (8.4-10.2); Carbon Dioxide 29 mmol/L (22-30); Chloride 98 mmol/L (98-107); Estimated CRCL calculation 47 ml/min; Estimated Glomerular Filt Rate > 60; Glucose 338 mg/dL (65-110); Potassium 4.4 mmol/L (3.4-5.0); Sodium 135 mmol/L (137-145)
--- NOTE | 2022-11-06 00:30 | ECG_ITS ---
Measurements Intervals [place] Rate: 68 P: 66 SD: 153 QRS: 44 QRSD: 90 T: 2 QT: 441 QTc: 471 Interpretive Statements SINUS RHYTHM FREQUENT VENTRICULAR PREMATURE COMPLEXES ABNORMAL ECG COMPARED TO ECG 03/14/2021 11:29:03 VENTRICULAR PREMATURE COMPLEXES NOW PRESENT Electronically Signed On 11-06-2022 6:55:48 CDT by Ras Spear D.O.
[2022-11-06] MEDS: SODIUM CHLORIDE 0.9% IV 1,000 ML 999 ML IV CONT (00:56)
[2022-11-06] MEDS: ONDANSETRON INJ 4 MG/2 ML VIAL IV PUSH (00:57)
[2022-11-06 01:02] LABS: Troponin I < 0.012 ng/mL (0.000-0.034)
[2022-11-06 02:26] LABS: Glucose Point of Care 221 mg/dl (65-105)
--- NOTE | 2022-11-06 02:34 | ED.GENADULT ---
HPI - General Adult General Chief complaint: Nausea/Vomiting/Diarrhea Stated complaint: n/v Time Seen by Provider: 11/06/22 00:00 History of Present Illness HPI narrative: Patient is a 51-year-old gentleman who presents the emergency department chief complaint of nausea and vomiting. The patient reports that he has been outside and they have been moving the patient reports his blood sugars may be elevated as he has not checked his blood sugars in some time. Patient reports that he is not having any chest pain denies shortness of breath reports that he feels a little better now here in the ER and does report that he felt, lightheaded with this. Related Data Home Medications Medication Instructions Recorded Confirmed aspirin 81 mg chewable tablet 81 mg PO DAILY 03/13/21 03/13/21 atorvastatin 40 mg tablet 40 mg PO DAILY 03/13/21 03/13/21 insulin detemir U-100 100 unit/mL 10 unit subcut HS 03/13/21 03/14/21 (3 mL) subcutaneous pen (Levemir FlexTouch U-100 Insulin) insulin lispro 100 unit/mL 5 unit subcut TID 03/13/21 03/14/21 subcutaneous pen metformin 500 mg tablet,extended 500 mg PO DAILY 03/13/21 03/13/21 release 24 hr Allergies Allergy/AdvReac Type Severity Reaction Status Date / Time amoxicillin Allergy Unknown Unknown Verified 07/22/22 18:49 Review of Systems Review of Systems: A 10 system review of systems was completed on the patient and is negative except for what is stated in the HPI. Nursing and ancillary documentation was reviewed. [facility] Past Medical History Medical History Coronary artery disease Discitis of lumbar region Hepatitis C Hypertension Surgical History Surgical History History of cardiac catheterization History of coronary artery stent placement Family History Family History Father Myocardial infarction Social History Social History Smoking packs per day: 1 Smoking cigarettes per day: 20.0 Smoking status: Current every day smoker Tobacco type: cigarettes Alcohol intake: never Substance use: never Substance use type: does not use Gender identity (if verbalized by the patient): Male Spiritual care concerns: No Exam Narrative: GENERAL: Well-appearing, well-nourished, and in no acute distress. HEAD: Normocephalic, atraumatic. EYES: PERRLA and EOMI. ENT: Nares clear, no rhinorrhea or epistaxis. Mucous membranes moist. NECK: Supple. CHEST: Clear to auscultation. No respiratory distress. HEART: Regular rate and rhythm. No murmur heard. Normal peripheral pulses. ABDOMEN: Soft, nontender, nondistended, normal active bowel sounds. EXTREMITIES: Normal range of motion. No edema. SKIN: Warm, dry, no rash. NEURO: No focal deficits. Alert and oriented x3. PSYCH: Normal mood and affect. Course Vital Signs Vital signs: Vital Signs Temperature 36.4 C 11/05/22 22:44 Pulse Rate 78 11/05/22 22:44 Respiratory Rate 14 11/05/22 22:44 Blood Pressure 118/67 11/05/22 22:44 Pulse Oximetry 99 11/05/22 22:44 Oxygen Delivery Room Air 11/05/22 22:44 Temperature 36.4 C 11/05/22 22:44 Pulse Rate 70 11/05/22 23:02 Respiratory Rate 25 H 11/05/22 23:02 Blood Pressure 128/69 11/05/22 23:02 Pulse Oximetry 99 11/05/22 22:44 Oxygen Delivery Room Air 11/05/22 22:44 Medical Decision Making [facility] Narrative Medical decision making narrative: Differential diagnosis includes DKA, hyperglycemia, dehydration, noncompliance, Laboratory studies were obtained on the patient which showed a normal CBC electrolytes showed a sodium of 135 potassium was 4.4 chlorides 98 CO2 is 29 anion gap is 8 BUN was 18 creatinine 1.2 glucose was 338 on the initial serum glucose blood sugar liver enzym
[2022-11-06 02:58] VITALS: BP 101/57; PULSE 73; RESP 14; O2SAT 100
== END 2022-11-06 03:00 | disposition home or self-care (01) ==
PROVIDERS: Emergency Provider Emergency Medicine
DX: E11.65 Type 2 diabetes mellitus with hyperglycemia (principal); R11.2 Nausea with vomiting, unspecified; I25.10 Atherosclerotic heart disease of native coronary artery without angina pectoris; I10 Essential (primary) hypertension; F17.210 Nicotine dependence, cigarettes, uncomplicated; Z95.5 Presence of coronary angioplasty implant and graft; Z79.84 Long term (current) use of oral hypoglycemic drugs; Z79.4 Long term (current) use of insulin; Z79.82 Long term (current) use of aspirin; I49.3 Ventricular premature depolarization
CPT/HCPCS: 36415; 80053; 82948; 84484; 85025; 93005; 96361; 96374; 99284; J2405; J7030